=== PATIENT | female | born 1950 | race Caucasian/White ===

== ENCOUNTER 2025-07-06 21:48 | Emergency (ER) | payer MEDICARE, MEDICAID ==
[~2025-07-06] VITALS: Ht 149.9 cm; Wt 82.7 kg
[~2025-07-06 21:48] MED LIST: GABA-531 PO; HYDR200T76 PO; PANT20TA PO; RANI150T7 PO
[2025-07-06 21:55] VITALS: TEMP 98.1
[2025-07-06] MEDS: HYDROCODONE/ACETAMINOPHEN 5-325 MG TABLET PO ONE (23:36)
[2025-07-07 02:51] VITALS: BP 128/64; PULSE 72; RESP 16; O2SAT 99
== END 2025-07-07 03:00 | disposition home or self-care (01) ==
LOC: EMS 21:53
DX: S82.142A Displaced bicondylar fracture of left tibia, initial encounter for closed fracture (principal); S32.008A Other fracture of unspecified lumbar vertebra, initial encounter for closed fracture; M19.90 Unspecified osteoarthritis, unspecified site; K21.9 Gastro-esophageal reflux disease without esophagitis; Z98.890 Other specified postprocedural states; Z90.710 Acquired absence of both cervix and uterus; Z79.899 Other long term (current) drug therapy; W01.0XXA Fall on same level from slipping, tripping and stumbling without subsequent striking against object, initial encounter; Y93.89 Activity, other specified; Y92.89 Other specified places as the place of occurrence of the external cause; Y99.8 Other external cause status
CPT/HCPCS: 29505; 72100; 72220; 99284; 73562-TC; 73600-TC; Z7502; Z7610